=== PATIENT | male | born 1940 | race Caucasian/White ===

== ENCOUNTER 2016-12-07 14:31 | Inpatient (IN) ==
[2016-12-07] MEDS ORDERED: TYLENOL PO ONE (14:42)
[2016-12-07] MEDS ORDERED: NS 1,000 ML IV ONE ×2 (15:33→19:23)
--- NOTE | 2016-12-07 15:51 | Diag Imaging Result Doc PS360 ---
EXAM: CHEST-2 VIEWS HISTORY: fever low o2 TECHNIQUE: COMPARISON: 04/22/2016 FINDINGS: The lungs are well expanded. The heart is not enlarged. The vessels are not distended. There are no infiltrates. No pleural effusions.The right hemidiaphragm is elevated. This is similar to the prior exam. IMPRESSION: No pneumonia. Electronically signed by Reji Joel 12/07/2016 3:48 PM
[2016-12-07 15:58] LABS: BE 1.1 mmoll (-3.0-3.0); BLOOD TYPE ARTERIAL; DRAW SITE R RADIAL; METHB 1.8 % (0.0-1.5); PCO2(98.6) 30 mmHg (35-45); PO2(98.6) 67 mmHg (60-100); SAMPLE BLOOD; SAO2 97.5 % (95.0-100.0); THB 13.7 g/dL (11.5-17.4)
[2016-12-07 16:00] LABS: MODALITY CANNULA
[2016-12-07 16:01] LABS: ALLEN TEST YES
[2016-12-07 16:05] LABS: BASO% 0.3 % (0.0-0.8); EOS# 0.02 X1000 (0.0-0.7); EOS% 0.2 % (0.0-10.0); HEMOGLOBIN 14.2 g/dL (14.0-18.0); IMM GRAN# 0.05 X1000 (0.0-0.04); IMM GRAN% 0.5 % (0.0-0.5); LYMPH# 0.38 X1000 (1.2-3.4); LYMPH% 3.4 % (20.5-51.1); MANUAL DIFF NEEDED? NO; MCH 31.6 PG (27-31); MCHC 35.5 g/dL (33-37); MCV 89.1 FL (81-99); MONO# 1.08 X1000 (0.11-0.59); MONO% 9.7 % (1.7-9.3); MPV 10.1 FL (7.4-10.4); NEUT% 85.9 % (42.2-75.2); PLT 139 X1000 (130-400); RBC 4.49 XMIL (4.7-6.1)
[2016-12-07 16:08] LABS: INR 0.94 (0.86-1.15); PROTIME 13.3 Seconds (12.1-15.5); PTT PL 29.5 Seconds (22.6-43.9)
[2016-12-07 16:10] LABS: URINE CULTURE PL NEEDED? NO
[2016-12-07 16:14] LABS: BILIRUBIN URINE NEGATIVE (NEGATIVE); BLOOD URINE NEGATIVE (NEGATIVE); CLARITY CLEAR (CLEAR); COLOR YELLOW; GLUCOSE URINE NEGATIVE (NEGATIVE); LEUKOCYTES URINE NEGATIVE (NEGATIVE); NITRITE URINE NEGATIVE (NEGATIVE); PROTEIN URINE TRACE mg/dL (NEGATIVE); SP GRAVITY URINE 1.005; UROBILINOGEN URINE NORMAL
[2016-12-07 16:14] LABS: AGAP 13; ALBUMIN 4.4 g/dL (3.5-5.0); ALKALINE PHOSPHATASE 586 U/L (32-122); BUN 20 mg/dL (8-22); CALCIUM 9.3 mg/dL (8.8-10.2); CHLORIDE 98 mmol/L (98-107); COSMO 274; GOT 396 U/L (10-34); GPT 260 U/L (10-44); POTASSIUM 3.4 mmol/L (3.5-5.1); SODIUM 135 mmol/L (136-145); TCO2 24 mmol/L (25-35); TOTAL PROTEIN 7.7 g/dL (6.3-8.3)
[2016-12-07 16:15] LABS: CK PROFILE 282 U/L (24-204)
[2016-12-07 16:22] LABS: URINE WBC <10 /HPF (<10)
[2016-12-07 16:23] LABS: URINE CAST NONE SEEN /LPF; URINE CRYSTAL NONE SEEN /HPF; URINE EPITHELIAL CELLS <10 /HPF (<10); URINE RBC <10 /HPF (<10); URINE SOURCE CLEAN CATCH
[2016-12-07 16:30] LABS: CK INDEX 2.7 (0.0-2.5); CK-MB 7.75 ng/mL (0.0-5.0)
[2016-12-07] MEDS ORDERED: PERCOCET-10 PO ONE (17:09)
--- NOTE | 2016-12-07 17:11 | EKG Report ---
Test Performed on : 12/07/2016 5:07:07 PM Test Reason : AMS Blood Pressure : / mmHG Vent. Rate : 078 BPM Atrial Rate : 078 BPM P-R Int : 186 ms QRS Dur : 146 ms QT Int : 414 ms P-R-T Axes : 058 -66 020 degrees QTc Int : 471 ms Normal sinus rhythm. with sinus arrhythmia. Right bundle branch block Left anterior fascicular block Bifascicular block Abnormal ECG When compared with ECG of 23-APR-2016 00:38, premature ventricular complexes. are no longer present premature atrial complexes. are no longer present Unconfirmed Result
--- NOTE | 2016-12-07 17:53 | Diag Imaging Result Doc PS360 ---
EXAM: HEAD W/O CONTRAST HISTORY: ams TECHNIQUE: CT of the head without contrast with dose reduction (clarity.) COMMENT: There are calcifications in the vertebral and internal carotid arteries bilaterally. There is a lacune in the left caudate head and patchy ill-defined lucencies are present around the lateral ventricles particularly in the frontal horn regions. There is no evidence of mass or abnormal extra-axial fluid collection and no evidence of bleed is present. There is no evidence of hydrocephalus. Compared to 04/23/2016 there is been no significant change. IMPRESSION: Chronic ischemic changes. No evidence of acute disease. Electronically signed by Vish Whittaker 12/07/2016 5:51 PM
--- NOTE | 2016-12-07 17:54 | EKG Report ---
Test Performed on : 12/07/2016 5:50:04 PM Test Reason : REPEAT EKG Blood Pressure : / mmHG Vent. Rate : 077 BPM Atrial Rate : 077 BPM P-R Int : 184 ms QRS Dur : 144 ms QT Int : 422 ms P-R-T Axes : 057 -62 010 degrees QTc Int : 477 ms Sinus rhythm. with premature atrial complexes. with aberrant conduction. Left axis deviation Right bundle branch block Abnormal ECG When compared with ECG of 07-DEC-2016 17:07, (Unconfirmed) aberrant conduction. is now present Unconfirmed Result
--- NOTE | 2016-12-07 18:03 | Diag Imaging Result Doc PS360 ---
EXAM: CT ABD/PELVIS W/ IV CONT ONLY HISTORY: elevated transaminaes ams TECHNIQUE: CT of the abdomen and pelvis with intravenous contrast COMMENT: There are no previous studies available for comparison. There is atelectasis versus fibrosis versus pneumonia in the right lower lobe. A very small amount of pleural fluid is present in the right costophrenic sulcus. There are numerous granulomata in the spleen. There are dilated intrahepatic biliary ducts. The common bile duct measures over 11 mm. There are no apparent gallstones in the gallbladder is not distended. The pancreas is atrophic in appearance. There is some prominence of the distal pancreatic duct which measures almost 5 mm in diameter the possibility of a stone or other obstruction in the distal common bile duct cannot be excluded. There are scattered granulomata in the liver. The adrenal glands are not enlarged. The kidneys are without evidence of hydronephrosis or mass. There is stool throughout the colon. The small bowel is not distended. There is no evidence of significant adenopathy. The appendix is not identified however there is no evidence of appendicitis. Pelvis: There is severe diverticulosis in the distal descending and sigmoid colon. No evidence of active diverticulitis is present and there is no evidence of free fluid. There are surgical clips in the scrotum and vascular calcifications in the penis. There is a hydrocele on the left hemiscrotum. IMPRESSION: Biliary and pancreatic ductal dilatation which may be due to a stone or other obstructing lesion in the distal common bile duct. Electronically signed by Vish Whittaker 12/07/2016 6:01 PM
[2016-12-07] MEDS ORDERED: ZOSYN 3.375 GM/NS 3.375 GM/50 ML IVPB IV ONE (18:20)
[2016-12-07 18:36] LABS: AMYLASE 34 U/L (20-200); LIPASE 51 U/L (13-60)
[2016-12-07 18:48] LABS: CK INDEX 2.5 (0.0-2.5); CK-MB 5.26 ng/mL (0.0-5.0)
[2016-12-07] MEDS ORDERED: PERCOCET-10 PO PRN (22:06)
[2016-12-07] MEDS ORDERED: PERCOCET-10 PO SCH (22:15)
[2016-12-07] MEDS ORDERED: XANAX PO SCH (22:15)
[2016-12-07] MEDS ORDERED: ZOFRAN IV PRN (22:31)
[2016-12-07] MEDS: XANAX PO SCH (22:36)
[2016-12-07] MEDS ORDERED: THIAMINE 100 MG in NS 50 ML IV ONE (22:36)
[2016-12-07] MEDS ORDERED: KLOR-CON PO ONE (22:36)
[2016-12-07] MEDS: PERCOCET-10 PO SCH (22:36)
[2016-12-07] MEDS ORDERED: LOVENOX SUBQ SCH (22:45)
[2016-12-07] MEDS ORDERED: NS 250 ML ONE (23:48)
[2016-12-07] MEDS: ZOSYN 3.375 GM/NS 3.375 GM/50 ML IVPB IV SCH (23:49)
--- NOTE | 2016-12-08 01:52 | HISTORY AND PHYSICAL ---
CHIEF COMPLAINT: Chills. PRIMARY CARE PROVIDER: Dr. Kirit Bedolla in [place]. HISTORY OF PRESENT ILLNESS: Mr. Peres is a 76-year-old male, who presented to [facility] emergency room related to, as he put it in his own words, "hard chills." Has a history of hypertension, arthritis, and chronic back pain, that he takes chronic opioids and benzodiazepines for. He denies any chest pain, abdominal pain, nausea, vomiting , diarrhea, urinary symptoms, or changes to his bowel habits. In the ER, a laboratory panel was obtained, which showed an elevated AST and ALT, 396 and 260 respectively, with a total bilirubin of 2.30. A CT of the abdomen and pelvis with IV contrast, which showed biliary and pancreatic ductal dilation, with differentials to be included a stone or other obstructing lesion in the distal common bile duct, was also noted a severe diverticulosis in the descending colon and sigmoid colon. No evidence of acute diverticulitis. The patient will be admitted to [facility] with GI consultation for further evaluation and treatment. REVIEW OF SYSTEMS: Fourteen point review of systems conducted with the patient. Pertinent positives listed above in the HPI. All other systems reviewed and found to be negative. PAST MEDICAL HISTORY: 1. Osteoarthritis. 2. Hypertension. 3. Chronic pain syndrome. PREVIOUS SURGICAL HISTORY: 1. Left total knee arthroplasty. 2. Right total knee arthroplasty. 3. Colonoscopy. SOCIAL HISTORY: Former smoker. I believe he quit in the . Denies illicit drug use. He is a bolaños. Currently, lives alone. Does drink beer, 1-3 beers daily. FAMILY HISTORY: Mother and father both in their 80s from old age, per the patient. Denies any significant medical history in his family. ALLERGIES: Allergic to codeine and Benadryl. HOME MEDICATIONS: A list is not available at this time. The patient does take Percocet 10 and Xanax 1-2 mg. Order for nursing to reconcile home medications has been placed in the computer, and will be continued when possible. PHYSICAL EXAMINATION: VITAL SIGNS: Temperature 98.7 degrees, pulse 63, respirations 152/74, oxygen saturation 96% on room air. GENERAL: Pleasant 76-year-old male lying in the medical floor bed, in no acute distress. Answers all questions appropriately. HEENT: Head is atraumatic, normocephalic. Pupils equal, round, reactive to light. Extraocular eye movement intact. Sclerae noted to be icteric. Conjunctivae pink. Oral mucosa is moist. NECK: Supple. No JVD. No thyromegaly. Trachea is midline. CARDIAC: S1-S2 appreciated. No murmurs, gallops, rubs. LUNGS: Clear to auscultation. Symmetrical rise and fall with respirations. No rhonchi, wheezes, rales. ABDOMEN: Soft, nondistended, nontender. Bowel sounds present in all 4 quadrants. Normoactive. No pulsatile mass. No organomegaly. EXTREMITIES: No clubbing, cyanosis, or edema. 2+ pedal pulses bilaterally. SKIN: Mild jaundice noted. Otherwise, warm, dry, and intact. No acute lesions or rash. NEUROLOGICAL: Alert and oriented x3. Cranial nerves 2-12 are grossly intact. GENITOURINARY: Patient voids, otherwise deferred. DIAGNOSTIC DATA: CT of the abdomen and pelvis showed biliary and pancreatic ductal dilation, which may be due to a stone or other obstructing lesion in the distal common bile duct. EKG: Sinus rhythm, with PACs and right bundle branch block. CT of the head showed a chronic ischemic changes. LABORATORY DATA: WBC 11.10, hemoglobin 14.2, hematocrit 40, platelet count 139, 000. Coagulation studies within normal limits. Sodium 135, potassium 3.4, chloride 98, carbon dioxide 24, BUN 20, creatinine 1, glucose 121. Total bilirubin 2.30, AST 396, ALT 260, alkaline phosphate 589. Urine unremarkable. ASSESSMENT AND PLAN: 1. Obstructive jaundice. Will consult Dr. Casas for possible ERCP. Will give IV Zosyn. Hold patient NPO. Give normal saline, 125 mL an hour. 2. Hypokalemia. We will give 40 mEq of potassium. Recheck level in a.m. 3. Hypertension. I believe the patient may take Norvasc and lisinopril. Will start patient on these until his home medications can be evaluated. 4. Chronic low back pain and arthritis. Continue patient's Percocet. 5. Daily alcohol use. This may be contributing to the patient's elevated liver function tests. We will give 100 mg of thiamine. We will continue his Xanax, which he takes b.i.d. Nursing to monitor for neurologic changes or withdrawal symptoms. 6. Further recommendations per patient's clinical course. Dictated by ERIKA Diaz for Helio Earl MD Seen,examined,discussed case with COMMERCIAL COLLECTOR. cc: ERIKA Diaz MD [facility]
[2016-12-08] MEDS: ZOSYN 3.375 GM/NS 3.375 GM/50 ML IVPB IV SCH ×4 (06:27→23:06)
[2016-12-08] MEDS: PERCOCET-10 PO SCH ×3 (06:27→22:48)
[2016-12-08 07:02] LABS: BASO% 0.2 % (0.0-0.8); EOS# 0.01 X1000 (0.0-0.7); EOS% 0.1 % (0.0-10.0); HEMATOCRIT 33.1 % (42.0-52.0); HEMOGLOBIN 11.4 g/dL (14.0-18.0); LYMPH# 0.47 X1000 (1.2-3.4); LYMPH% 4.7 % (20.5-51.1); MANUAL DIFF NEEDED? YES; MCH 31.7 PG (27-31); MCHC 34.4 g/dL (33-37); MCV 91.9 FL (81-99); MONO# 0.74 X1000 (0.11-0.59); MONO% 7.3 % (1.7-9.3); MPV 10.4 FL (7.4-10.4); NEUT% 87.7 % (42.2-75.2); PLT 132 X1000 (130-400)
[2016-12-08 07:13] LABS: CALCIUM 8.5 mg/dL (8.8-10.2); MAGNESIUM 1.7 mg/dL (1.5-2.7); POTASSIUM 4.6 mmol/L (3.5-5.1)
--- NOTE | 2016-12-08 07:30 | EKG Report ---
Test Performed on : 12/08/2016 06:49:28 AM Test Reason : follow up Blood Pressure : / mmHG Vent. Rate : 057 BPM Atrial Rate : 057 BPM P-R Int : 188 ms QRS Dur : 126 ms QT Int : 456 ms P-R-T Axes : 046 -44 -16 degrees QTc Int : 443 ms Sinus bradycardia. Left axis deviation Right bundle branch block Abnormal ECG When compared with ECG of 07-DEC-2016 17:50, (Unconfirmed) aberrant conduction. is no longer present T wave inversion no longer evident in Anterior leads T wave amplitude has decreased in Lateral leads Confirmed by Jaiden Watson DO ([id number]) on 12/12/2016 11:20:54 AM
[2016-12-08 07:31] LABS: BANDS 6 % (0-1); LYMPHS 6 % (21-51); MONO 4 % (1-9)
[2016-12-08] MEDS ORDERED: NORVASC PO SCH (09:00)
[2016-12-08] MEDS ORDERED: PRINIVIL PO SCH (09:00)
--- NOTE | 2016-12-08 09:20 | Diag Imaging Result Doc PS360 ---
EXAM: US GB < RUQ (LIMITED) INDICATION: obstructive jaundice COMPARISON: None. FINDINGS: The gallbladder appears normal with no stones, wall thickening, or pericholecystic fluid. The common bile duct is dilated measuring up to 9 mm in diameter. There is also intrahepatic biliary dilatation. Sonographic Macias's sign was reported to be negative. Aside from the intrahepatic biliary dilatation, the liver is grossly unremarkable. Portal venous flow is hepatopedal. Pancreatic duct is somewhat dilated measuring up to 5 mm in diameter. The pancreas is partially obscured. The visualized portion is grossly unremarkable, otherwise. The aorta and IVC are grossly unremarkable. The right kidney is grossly unremarkable. IMPRESSION: Extrahepatic and intrahepatic biliary dilatation as well as pancreatic duct dilatation as described. Although not identified on this study, a distal obstructing lesion cannot be excluded. Consider correlation with ERCP. Electronically signed by Pete Muñoz 12/08/2016 9:18 AM
[2016-12-08] MEDS: PRINIVIL PO SCH (11:13)
[2016-12-08] MEDS: MIRALAX PO SCH (11:13)
[2016-12-08] MEDS: XANAX PO SCH ×2 (11:14→21:32)
[2016-12-08] MEDS: NORVASC PO SCH (11:14)
--- NOTE | 2016-12-08 11:54 | PROGRESS NOTE ---
DATE: 12/08/2016 SUBJECTIVE: This patient states that he is feeling better. He is complaining of mild abdominal discomfort. No nausea. No vomiting. They are going to start this patient on a liquid diet and he will be NPO after midnight. He will have an ERCP done tomorrow. OBJECTIVE: Vital Signs: Temperature 99.2 degrees, pulse 57, respiratory rate 21, blood pressure 109/58, oxygen saturation 94% on 2 L of nasal cannula. HEENT: Head normocephalic. No trauma. PERRLA. Neck: Supple. No JVD. No masses. Central trachea. Chest: Clear to auscultation. No wheezing. No rales. Abdomen: Soft, nontender, nondistended. Positive bowel sounds. Mild discomfort at the level of the right abdomen. Extremities: No edema. No clubbing. No cyanosis. Neurological: The patient is alert and oriented x3. No focal deficits. LABORATORY: WBC 10, hemoglobin 11.4, hematocrit 33.1 platelets 132,000. Sodium 138, potassium 4.6, chloride 102, bicarbonate 26, BUN 21, creatinine 1.2, glucose 118, calcium 8.5. ASSESSMENT AND PLAN: 1. Likely ascending cholangitis. This patient will have an ERCP done tomorrow. Gastroenterology department already evaluated this patient. He will have a liquid diet today and he will be NPO after midnight. 2. Hypokalemia, resolved. 3. Hypertension, stable. Blood pressure is 109/58. 4. Chronic low back pain and arthritis. Continue with his home medication. 5. Alcohol abuse. Probably this is contributing to this patient's LFT elevation. Continue with the same management for now. 6. Transaminitis. It could be multifactorial. Likely secondary to biliary obstruction and alcohol abuse. Will monitor. cc: Manny Wright MD
--- NOTE | 2016-12-08 11:54 | CONSULTATION ---
DATE OF CONSULTATION: 12/08/2016 REASON FOR REFERRAL: Fever, abnormal ultrasound/CT scan. HISTORY OF PRESENT ILLNESS: This is a 76-year-old white male, who presented to urgent care yesterday with high fever up to 104 and chills. He was recommended to go to [facility]. He was evaluated there and sent to [facility] for further evaluation. Daughter is at the bedside with the patient. She states he started running a high fever yesterday and had chills. She was concerned because in May he had an infection of his right knee replacement and it had to be redone. He was also on home antibiotics for over a month. He has denied abdominal pain. Denied nausea or vomiting. No reported constipation or diarrhea. He does report chronic back pain and states he had been evaluated for possible back surgery. On evaluation, he was found to have elevated liver function tests, and abnormal CT scan and ultrasound showing biliary and pancreatic duct dilation with possible stone or obstructing lesion in the distal common bile duct. Also, was noted to have severe diverticulosis, but no evidence of diverticulitis. PAST MEDICAL HISTORY: For arthritis, hypertension, chronic pain. PREVIOUS SURGICAL HISTORY: He has had left total knee replacement, right total knee replacement, He had to have the right total knee re-done due to an infection. He does report having a colonoscopy in the past. ALLERGIES: Allergies to codeine causing a rash; Benadryl unknown reaction. HOME MEDICATIONS: 1. Norvasc 10 mg daily. 2. Xanax 2 tablets twice a day. 3. Oxycodone/acetaminophen 10/325, one 3 times a day as needed. 4. Naproxen 500 mg twice a day. 5. Prinivil 20 mg daily. SOCIAL HISTORY: He is a former smoker, quit in the . He does report alcohol use. He would not tell me how often. He states he drinks "when he wants to". He lives alone. He does still work, as a bolaños. FAMILY HISTORY: No significant family history noted. REVIEW OF SYSTEMS: Per HPI. PHYSICAL EXAM: Vital Signs: Temperature 99.2 degrees, pulse 57, respirations 21, blood pressure 109/58. General: Generally patient is awake and alert in no acute distress. HEENT: Normocephalic, atraumatic. Pupils equal, round, reactive to light. Sclerae nonicteric. Respiratory: Lung sounds clear bilaterally. Abdomen: Soft, nondistended, positive bowel sounds. Extremities: No lower extremity edema noted. He does report having some swelling in the lower extremity at times. Skin: I do not notice any jaundice at this time. DIAGNOSTIC RESULTS/LABORATORY: Hematology: White count 10.07, hemoglobin 11.4 , hematocrit 33.1, MCV 91.9, platelet 132. Coagulation: Pro time 13.3, INR 0.94, PTT 29.5. Chemistry: Sodium 138, potassium 4.6, chloride 102, CO2 26, BUN 21, creatinine 1.2. Liver function tests on 12/07/2016: Total bilirubin 2.30, AST 396, ALT 260, alkaline phosphatase 586. Ammonia 29. Amylase 34, lipase 51. Ultrasound of the abdomen showed extrahepatic and intrahepatic biliary dilatation, as well as pancreatic duct dilation. CT scan of the abdomen and pelvis showed biliary and pancreatic ductal dilatation, possible stone or obstructing lesion in the distal common bile duct is possible. There is severe diverticulosis with no evidence of diverticulitis. ASSESSMENT AND PLAN: 1. Fever. 2. Biliary dilatation. 3. Elevated liver function tests. 4. Hypertension. 5. Chronic back pain. 6. Alcohol use. PLAN: Continue symptomatic treatment. Supportive care. Continue antibiotics. Start Full liquid diet. We will plan for an ERCP when the schedule permits. Further plans to be made according to findings. I have discussed the procedure along with benefits and risks with the patient and family. I have discussed this case with Dr. Ortiz. Further plans will be made as needed. Thank you for this consultation. Dictated by ERIKA Dixon for Ga Ortiz MD cc: ERIKA Sewell MD [facility]
[2016-12-09] MEDS: ZOSYN 3.375 GM/NS 3.375 GM/50 ML IVPB IV SCH ×3 (05:49→17:24)
[2016-12-09 06:17] LABS: MANUAL DIFF NEEDED? NO
[2016-12-09 06:26] LABS: BASO% 0.4 % (0.0-0.8); EOS# 0.43 X1000 (0.0-0.7); EOS% 5.5 % (0.0-10.0); HEMATOCRIT 35.2 % (42.0-52.0); IMM GRAN# 0.02 X1000 (0.0-0.04); IMM GRAN% 0.3 % (0.0-0.5); LYMPH# 0.61 X1000 (1.2-3.4); LYMPH% 7.9 % (20.5-51.1); MCH 31.6 PG (27-31); MCHC 34.1 g/dL (33-37); MCV 92.6 FL (81-99); MONO# 0.98 X1000 (0.11-0.59); MONO% 12.6 % (1.7-9.3); MPV 10.6 FL (7.4-10.4); NEUT% 73.3 % (42.2-75.2); PLT 140 X1000 (130-400)
[2016-12-09] MEDS: PERCOCET-10 PO SCH ×3 (06:31→19:42)
[2016-12-09 06:41] LABS: ALBUMIN 3.5 g/dL (3.5-5.0); POTASSIUM 4.8 mmol/L (3.5-5.1); TOTAL BILIRUBIN 0.61 mg/dL (0.20-1.00); TOTAL PROTEIN 6.5 g/dL (6.3-8.3)
[2016-12-09] MEDS: PRINIVIL PO SCH (09:03)
[2016-12-09] MEDS: NORVASC PO SCH (09:03)
[2016-12-09] MEDS: XANAX PO SCH ×4 (09:03→20:43)
[2016-12-09] MEDS: MIRALAX PO SCH (09:03)
[2016-12-09] MEDS: NS 1,000 ML IV SCH (09:06)
[2016-12-09] MEDS ORDERED: GLUCAGON ONE (12:36)
--- NOTE | 2016-12-09 13:00 | PROGRESS NOTE ---
DATE: 12/09/2016 SUBJECTIVE: This patient states that he is feeling better. He is complaining of mild abdominal discomfort. No nausea, no vomiting. The plan is to go ahead and get an ERCP done today. OBJECTIVE: Vital signs: Temperature 98.4, pulse 59, respiratory rate 19, blood pressure 131/62, oxygen saturation 95 on 2 L of nasal cannula. HEENT: Head normocephalic, no trauma, GERTRUDIS. Neck: No JVD, no masses. Central trachea. Chest: Clear to auscultation, no wheezing or rales. Abdomen: Soft, mild tenderness to palpation at the level of the right upper quadrant. Nondistended. Positive bowel sounds. Extremities: No edema, no clubbing, no cyanosis. Neurological: The patient is alert and oriented x3, no focal neurological deficits. LABORATORY: WBC 7.7, hemoglobin 12, hematocrit 35.2, platelets 140. Sodium 137, potassium 4.8, chloride 100, bicarbonate 26, BUN 23, creatinine 1.3, glucose 100, calcium 9. AST 83, ALT 143, alkaline phosphatase 329. Albumin 3.5. ASSESSMENT AND PLAN: 1. Likely ascending cholangitis. This patient will have an ERCP done today. Gastroenterology department already evaluated this patient. He is n.p.o. 2. Hypokalemia, resolved. 3. Hypertension, stable. 4. Transaminitis. Could be multifactorial secondary to biliary obstruction and alcohol abuse. This is getting much better. 5. Chronic low back pain and arthritis. Continue with home medication. 6. Alcohol abuse. Probably this is contributing to this patient's LFT elevation. Continue with the same management for now. This patient has been highly advised against alcohol abuse. I will continue with daily cessation education. cc: Manny Wright MD
[2016-12-09] MEDS ORDERED: INDOCIN ONE (13:11)
[2016-12-09] MEDS ORDERED: DIPRIVAN 1% 500 MG/50 ML BOTTLE ONE (13:16)
[2016-12-09] MEDS ORDERED: DIPRIVAN 1% ONE (14:47)
--- NOTE | 2016-12-09 15:21 | Diag Imaging Result Doc PS360 ---
EXAM: ERCP-BILIARY AND PANCREATIC HISTORY: elevated lfts, biliary dilation TECHNIQUE: COMPARISON: None. FINDINGS: Seven films submitted. The common bile duct isn't dilated. I believe there is a common bile duct stent which has been placed on the last images. Contrast does not empty from the common bile duct into the small bowel. IMPRESSION: Dilated common bile duct with a stent placed Electronically signed by Reji Joel 12/09/2016 3:19 PM
[2016-12-10] MEDS: ZOSYN 3.375 GM/NS 3.375 GM/50 ML IVPB IV SCH ×4 (01:00→17:10)
[2016-12-10] MEDS: PERCOCET-10 PO SCH ×4 (03:33→20:57)
[2016-12-10] MEDS: NS 1,000 ML IV SCH ×4 (06:17→20:56)
[2016-12-10 06:34] LABS: MANUAL DIFF NEEDED? NO
[2016-12-10 06:39] LABS: BASO% 0.1 % (0.0-0.8); EOS# 0.05 X1000 (0.0-0.7); EOS% 0.7 % (0.0-10.0); HEMOGLOBIN 12.4 g/dL (14.0-18.0); IMM GRAN# 0.02 X1000 (0.0-0.04); IMM GRAN% 0.3 % (0.0-0.5); LYMPH% 7.8 % (20.5-51.1); MCH 31.6 PG (27-31); MCHC 34.4 g/dL (33-37); MCV 91.6 FL (81-99); MONO% 7.8 % (1.7-9.3); MPV 10.7 FL (7.4-10.4); NEUT% 83.3 % (42.2-75.2); PLT 159 X1000 (130-400); RBC 3.93 XMIL (4.7-6.1)
[2016-12-10 07:08] LABS: AGAP 13; BUN 17 mg/dL (8-22); CALCIUM 8.5 mg/dL (8.8-10.2); CHLORIDE 99 mmol/L (98-107); COSMO 280; POTASSIUM 3.8 mmol/L (3.5-5.1); SODIUM 138 mmol/L (136-145); TCO2 26 mmol/L (25-35)
[2016-12-10 07:10] LABS: ALBUMIN 3.4 g/dL (3.5-5.0); DIRECT BILIRUBIN 1.2 mg/dL (0.00-0.20); TOTAL BILIRUBIN 1.51 mg/dL (0.20-1.00)
[2016-12-10] MEDS: XANAX PO SCH ×2 (08:42→20:57)
[2016-12-10] MEDS: MIRALAX PO SCH (08:42)
[2016-12-10] MEDS: NORVASC PO SCH (08:42)
[2016-12-10] MEDS: PRINIVIL PO SCH (08:42)
[2016-12-10] MEDS: PRILOSEC PO SCH ×2 (10:23→18:03)
--- NOTE | 2016-12-10 10:57 | OPERATIVE NOTE ---
PROCEDURE DATE: 12/09/2016 PROCEDURES: 1. Esophagogastroduodenoscopy. 2. Duodenal stricture dilation. 3. Endoscopic retrograde cholangiopancreatography. 4. Sphincterotomy. 5. Stent placement. MEDICATION USED: MAC as per Anesthesia. SCOPE: Olympus duodenal scope. PREOPERATIVE DIAGNOSES: 1. Obstructive jaundice. 2. Ascending cholangitis. POSTOPERATIVE DIAGNOSES: 1. Esophagitis. 2. Hiatal hernia. 3. Duodenal strictures. 4. Dilated biliary system and pancreatic duct. HISTORY: This 76-year-old gentleman admitted to the hospital with abdominal pain, fever, was found to have elevated LFT, and imaging studies showed evidence of dilated ducts , both intra and extrahepatic biliary system as well as pancreatic duct. ERCP was done for diagnostic as well as therapeutic purposes. DESCRIPTION OF PROCEDURE: Informed consent obtained from the patient. The procedure, risks, benefits, alternatives were explained in layman's terms. Risks of, but not limited to bleeding, perforation, aspiration, pneumonia, and pancreatitis was explained. They understood and agreed to proceed. Patient was brought to the endoscopy unit and was premedicated as per Anesthesia. After adequate sedation, while he was lying in left lateral position, the duodenal scope was introduced into the posterior pharynx and advanced manually into the esophagus. Through the esophagus, it was advanced to the stomach. The stomach was insufflated. Pylorus identified. Scope was then passed through the pylorus into the duodenal bulb, and further advancement was not possible because of severe stricture in the duodenum between the duodenal bulb and the second portion of duodenum. At this point, I withdrew the duodenal scope and I changed it to a gastroscope. The scope was then introduced into the posterior pharynx and advanced under direct vision into the esophagus, advanced through the esophagus. There was evidence of erosions noted in the distal esophagus suggestive of erosive esophagitis. There was a 2 cm hiatal hernia noted. The scope was then passed through the esophagus into the stomach. The stomach was insufflated and examined both in straight and retroflexed view, which revealed no pathology. Scope was then passed through the normal pylorus into the duodenal bulb and, again, I saw the stricture at the distal end of the duodenal bulb. No distinct ulcer was seen. Using a TTS balloon, I dilated the stricture up to 12 mm and, then I was able to advance the scope into the second portion of the duodenum where I could see the major papilla tangentially.There was another stricture noted just beyond the papilla; so, in fact, there were 2 strictures; one was before the papilla and the second one was beyond the papilla. That was also about 5-8 mm in diameter. I went and stretched that one using a TTS balloon up to 11 mm. I was able to advance the scope through into the distal end of the 2nd portion of the duodenum. I did not see any pathology there. The scope was then withdrawn, then I reintroduced the duodenal scope back into the duodenum but, unfortunately, I was not able to pass the duodenal scope into the second portion at all. At this point, I went ahead and used the straight viewing scope again and, fortunately, I was able to cannulate the pancreatic duct first, although the visualization was only transiently, but luckily, the cannula could be passed into the pancreatic duct. Contrast injected pancreatogram revealed dilated pancreatic duct. I did not see any pathology there. Then I used the similar technique, and I was able to pass the cannula into the common bile duct. After deep cannulation, contrast injected. Cholangiogram obtained which revealed dilated common bile duct, intrahepatic biliary ducts. The ducts were about 15 mm or so in size. However, I did not see any distinct filling defect or tumor. I did not see any stricture either. But, interestingly, the contrast was not flowing into the duodenum. At this point, I went ahead and advanced the wire into the hepatic biliary system and scope was then withdrawn leaving the wire in place. Then I switched the scope back to the ERCP scope, and I was able to cannulate the common bile duct although from a distance, and I was able to advance the cannula deep into the common bile duct using the guidewire as my guide. After that, I switched the wire from the one previously put in to the one that I went through the ERCP scope, and I was able to deploy a plastic stent into the distal common bile duct which was about 5 cm long 7- Croatian. Good drainage was noted and contrast was covering not be easily. The scope was then withdrawn. The patient tolerated the procedure. There were no complications noted. Patient was then transferred to the recovery area in a stable condition. IMPRESSION: 1. Erosive esophagitis. 2. Hiatal hernia. 3. Stricture duodenum x2, dilated. 4. Dilated intra and extrahepatic biliary ducts. Etiology most likely was whatever the cause for inflammation and stricture of the duodenum, although it appeared to be benign and peptic. 5. Dilated pancreatic duct.. RECOMMENDATION: I would continue him on proton pump inhibitor to heal the area of this peptic stricture and go back and re-examine the entire biliary system at a later date. In the meantime, I would continue antibiotic and recheck his labs and follow him in the hospital. Once he is discharged, I will see him in the office. I have explained the findings and patient's daughter was present at bedside. She understood all the pertinent questions and answered. cc: Ga Ortiz MD MTDD
--- NOTE | 2016-12-10 16:14 | PROGRESS NOTE ---
DATE: 12/10/2016 SUBJECTIVE: This patient states that he is feeling better. Some abdominal discomfort but, compared with previous days, is it is better. No nausea, no vomiting. He is tolerating p.o. Family members at the bedside. All their questions were answered. OBJECTIVE: Vital Signs: Temperature 98.1 degrees, pulse 61, respiratory rate 15, blood pressure 139/64, oxygen saturation 95% on 2 L of nasal cannula. HEENT: Head normocephalic. No trauma. PERRLA. Neck: Supple. No JVD. No masses. Central trachea. Chest: Clear to auscultation. No wheezing. No rales. Abdomen: Soft. Mild generalized tenderness to palpation. Nondistended, positive bowel sounds. Extremities: No edema. No clubbing. No cyanosis. Neurological: The patient is alert and oriented x3. No focal neurological deficits. LABORATORY: WBC 7.6, hemoglobin 12.4, hematocrit 36, platelets 159,000. Sodium 138, potassium 3.8, chloride 99, bicarbonate 26, BUN 17, creatinine 1, glucose 144, calcium 8.5, albumin 3.4. ASSESSMENT AND PLAN: 1. Ascending cholangitis, status post ERCP. This procedure was done yesterday and they found a dilated biliary system and pancreatic duct, and a stent has been placed. 2. Duodenal strictures. Continue with PPIs. 3. Esophagitis and hiatal hernia. Continue with the same management for now. 4. Hypokalemia, resolved. 5. Transaminitis. The liver function test increased a little bit. This is likely secondary to the ERCP done yesterday. We will continue to monitor. 6. Chronic low back pain and arthritis. Continue with home medication. 7. Alcohol abuse. This patient has been highly advised against alcohol abuse. I will continue with daily cessation education. 8. Hypertension, stable. cc: Manny Wright MD
[2016-12-11] MEDS: ZOSYN 3.375 GM/NS 3.375 GM/50 ML IVPB IV SCH ×2 (00:16→05:46)
[2016-12-11] MEDS: PERCOCET-10 PO SCH ×2 (02:48→06:47)
[2016-12-11] MEDS: NS 1,000 ML IV SCH (02:49)
[2016-12-11 06:26] LABS: MANUAL DIFF NEEDED? NO
[2016-12-11 06:32] LABS: BASO% 0.4 % (0.0-0.8); EOS# 0.11 X1000 (0.0-0.7); EOS% 1.5 % (0.0-10.0); HEMATOCRIT 39.1 % (42.0-52.0); HEMOGLOBIN 13.6 g/dL (14.0-18.0); IMM GRAN# 0.04 X1000 (0.0-0.04); IMM GRAN% 0.5 % (0.0-0.5); LYMPH# 0.75 X1000 (1.2-3.4); LYMPH% 9.9 % (20.5-51.1); MCH 31.3 PG (27-31); MCHC 34.8 g/dL (33-37); MCV 89.9 FL (81-99); MONO# 0.83 X1000 (0.11-0.59); MPV 10.5 FL (7.4-10.4); NEUT% 76.7 % (42.2-75.2); PLT 194 X1000 (130-400); RBC 4.35 XMIL (4.7-6.1)
[2016-12-11] MEDS: PRILOSEC PO SCH (06:48)
[2016-12-11 06:52] LABS: AGAP 14; ALBUMIN 3.9 g/dL (3.5-5.0); ALKALINE PHOSPHATASE 564 U/L (32-122); BUN 12 mg/dL (8-22); CALCIUM 9.7 mg/dL (8.8-10.2); CHLORIDE 101 mmol/L (98-107); COSMO 287; GOT 76 U/L (10-34); GPT 138 U/L (10-44); POTASSIUM 3.5 mmol/L (3.5-5.1); SODIUM 144 mmol/L (136-145); TCO2 29 mmol/L (25-35); TOTAL BILIRUBIN 1.41 mg/dL (0.20-1.00); TOTAL PROTEIN 7.4 g/dL (6.3-8.3)
[2016-12-11] MEDS ORDERED: APRESOLINE IV PRN (07:49)
[2016-12-11 08:39] VITALS: BP 156/67
[2016-12-11] MEDS ORDERED: APRESOLINE PO SCH (09:00)
[2016-12-11] MEDS: NORVASC PO SCH (09:31)
[2016-12-11] MEDS: MIRALAX PO SCH (09:31)
[2016-12-11] MEDS: XANAX PO SCH (09:31)
[2016-12-11] MEDS: PRINIVIL PO SCH (09:31)
--- NOTE | 2016-12-11 12:30 | PROGRESS NOTE ---
DATE: 12/11/2016 SUBJECTIVE: Patient states he is feeling better. He denies complaints at present time. He is wanting to go home. OBJECTIVE: Vital Signs: Temperature 98.7 degrees, pulse 72, respirations 16, blood pressure 156/67. LABORATORY RESULTS: Hematology: White count 7.56, hemoglobin 13.6, hematocrit 39.1, MCV 89.9, platelet 194,000. Chemistry: Sodium 144, potassium 3.5, chloride 101, CO2 29, BUN 12, creatinine 1.0, glucose 106, total bilirubin 1.41. AST 76, ALT 138, alkaline phosphatase 564. ERCP findings on 12/10/2016 showed erosive esophagitis, hiatal hernia, stricture in the duodenum x2 that were dilated. Dilated intra and extrahepatic biliary ducts. Dilated pancreatic duct. There was a stent placed. PLAN: Continue PPI. Will see him in the office in 2 weeks. We will plan to schedule a repeat ERCP in approximately 6 weeks to go back and reexamine the biliary system and remove the stent. Recommended patient have repeat liver function test in 2 weeks and see us in the office in 2 weeks. Patient voices understanding in this plan. I have discussed this case with Dr. Ortiz and also discussed the case with Dr. Mckeon. Dictated by ERIKA Dixon for Ga Ortiz MD cc: ERIKA Sewell MD
--- NOTE | 2016-12-11 17:12 | DISCHARGE SUMMARY ---
ADMISSION DATE: 12/07/2016 DISCHARGE DATE: 12/11/2016 CONSULTATIONS: Ga Ortiz MD with Gastroenterology. PERTINENT PROCEDURES: 1. Abdominal pelvis CT showed biliary and pancreatic ductal dilatation which may be due to a stone or other obstructing lesion in the common distal bile duct. 2. Head CT showed chronic ischemic changes. No evidence of acute disease. 3. Abdominal ultrasound showed extrahepatic and intrahepatic biliary dilatation as well as pancreatic duct dilatation although not identified on this study. A distal obstructing lesion cannot be excluded. Consider correlation with ERCP. 4. EGD with ERCP and stent placement performed by Dr. Ortiz. Ascending colon showed status post ERCP with stent placement performed by Dr. Ortiz. DISCHARGE DIAGNOSES: 1. Duodenal strictures. Continue PPI. 2. Esophagitis and hiatal hernia. 3. Hypokalemia resolved. 4. Transaminitis improving. 5. Chronic low back pain and arthritis. Continue with home medications. 6. Alcohol abuse. The patient has been advised about alcohol abstinence with daily cessation education. 7. Hypertension stable. HOSPITAL COURSE: Mr. Peres is a 76-year-old, male who presented to [facility] ED with chills. He carries a past medical history of hypertension, arthritis, chronic back pain that he takes chronic opiates for and benzodiazepines. In the ED laboratory data showed an elevated AST and ALT of 396 and 260, total bilirubin of 2.30. CT of the abdomen and pelvis showed biliary and pancreatic ductal dilatation. The patient was transferred to [facility] for GI consultation. He was given IV antiemetics, held NPO, started on IV fluids. His electrolytes were replenished. On monitoring his liver function he was given IV fluids and PRN treatment daily given his alcohol use as well as monitored closely for any neurologic or withdrawal symptoms. Patient underwent an EGD as well as ERCP with stent placement with Dr. Ortiz. They did find esophagitis, hiatal hernia, duodenal strictures, dilatated biliary system and pancreatic duct. Recommend to continue on PPI and follow up with Dr. Ortiz in 2 weeks. He has had no nausea or vomiting. No fever or chills. He is tolerating p.o. He is stable for discharge today. VITAL SIGNS ON DISCHARGE: Temperature is 98.7 degrees, heart rate 72, respirations 16, blood pressure 156/67, O2 is 92% on room air. DISCHARGE DIET: GI soft. DISCHARGE MEDICATIONS: 1. Xanax 1 mg tablet, 2 tabs p.o. as directed. 2. Norvasc 10 mg p.o. daily. 3. Cipro 250 mg p.o. b.i.d. 4. Prinivil 20 mg p.o. daily. 5. Prilosec 40 mg p.o. daily. 6. Percocet 10, 1 each p.o. q.8 hours. 7. MiraLAX 17 g p.o. daily. DISPOSITION: Mr. Peres is being discharged home with family. FOLLOWUP: 1. He will follow up with Dr. Ortiz in 2 weeks. 2. He can follow up with his primary care physician, Kirit Bedolla. 3. He can return to the ED for any worsening of symptoms. DISCHARGE INSTRUCTIONS: 1. Continue his PPI as well as his antibiotics. 2. He has been advised about alcohol abstinence. DISCHARGE TIME: 30 minutes. Dictated by ERIKA Don for Manny Wright MD cc: MD Kirit Alejo
[2016-12-11] MEDS ORDERED: CIPRO PO SCH (21:00)
[2016-12-12] MEDS ORDERED: PRILOSEC PO SCH (07:00)
--- NOTE | 2016-12-23 11:19 | PROVIDER DOCUMENTATION ---
This chart was entered by Caridad Colon Scribe, acting as scribe for Harsh Barroso MD. HPI-Fever <Alonzo Galicia - Last Filed: 12/07/16 20:42> - General Source: family (daughter) - History of Present Illness-Fever Fever Severity/Quality: reports: greater than 102 F Onset/Duration: reports: this morning (1000) Timing: reports: still present Severity: reports: moderate Context: reports: confusion Recent Illness?: reports: none Fever Therapy PSYCHIATRIC AIDE: Initiated none Cognitive Baseline: alert, oriented x3 Modifying Factors: improves with: nothing Associated Symptoms: reports: fever/chills (fever), other (confusion). denies: anxiety, arm pain, back/neck pain, chest pain, constipation, cough, diaphoresis , diarrhea, dizziness, EENT symptoms, fatigue, genitourinary problems, headaches , heartburn, joint pain, loss of appetite, malaise, muscle aches, sinus congestion/drainage, nausea, rash, seizure, shortness of breath, sensory/motor loss, pain with inspiration, swelling/mass in abdomen, syncope, vomiting, weakness, trouble walking Similar Symptoms Previously?: Yes (present since this am at 1000) Recently seen or treated by another doctor?: No <Scarlet Barroso - Last Filed: 12/23/16 11:19> - General Chief Complaint: Fever Stated Complaint: 103.9 FEVER/LOW O2 STAT Time Seen by Provider: 12/07/16 14:58 Allergies/Adverse Reactions: Patient Allergies Allergy/AdvReac Type Severity Reaction Status Date / Time codeine AdvReac RASH Verified 02/25/15 11:27 diphenhydramine HCl * AdvReac Unknown Verified 02/25/15 11:27 [From Benadryl] Home Medications: Home Medication List Medication Instructions Recorded Confirmed Last Taken Type Amlodipine [Norvasc] 10 mg PO DAILY 10/09/13 12/08/16 12/07/16 History 10mg daily LISINOpril [Prinivil] 20 mg PO DAILY 10/09/13 12/08/16 12/07/16 History Alprazolam [Xanax] 2 tab PO DIRECTED MDD BID 11/05/15 12/08/16 12/07/16 History 2mg Ciprofloxacin [Cipro] 250 mg PO BID #10 tablet 12/11/16 Unknown Rx Omeprazole [Prilosec] 40 mg PO DAILY #30 capsule 12/11/16 Unknown Rx Oxycodone/APAP 10 mg/325 mg 1 each PO Q8H #10 tablet 12/11/16 Unknown Rx [Percocet-10] Polyethylene Glycol 3350 [Miralax] 17 gm PO DAILY #15 powder, packet 12/11/16 Unknown Rx - History of Present Illness-Fever Nature of Presenting Problem: Pt is 76 y/o M presents to the ED with fever. Pt's daughter states visiting Pt this am at 1000 and Pt was in bed shaking. Pt's daughter states he is normally up and active. Pt's daughter states Pt is confused and talking out of his head. Pt's daughter states prior infection due to knee replacement. Pt's daughter states Pt was put on IV antibiotic for 3 times a day for 8 wks. Pt's daughter states taking Pt to Urgent Care prior to arrival. (Caridad Colon) Pt is 76 y/o M presents to the ED with fever. Pt's daughter states visiting Pt this am at 1000 and Pt was in bed shaking. Pt's daughter states he is normally up and active. Pt's daughter states Pt is confused and talking out of his head. Pt's daughter states prior infection due to knee replacement. Pt's daughter states Pt was put on IV antibiotic for 3 times a day for 8 wks. Pt's daughter states taking Pt to Urgent Care prior to arrival. (Scarlet Barroso) Review of Systems - Adult - REVIEW OF SYSTEMS - ADULT Constitutional: reports: fever. denies: chills, night sweats Eyes: denies: blurred vision, double vision, redness Ears, Nose, Mouth & Throat: denies: ear pain, nose pain, throat pain Cardiovascular: denies: chest pain, heart murmur, irregular heart rate Respiratory: denies: cough, shortness of breath, wheezing Gastrointestinal: denies: abdominal pain, diarrhea, nausea, vomiting Genitourinary: denies: dysuria, flank pain, hematuria Musculoskeletal: denies: bone pain, joint pain, neck pain Integumentary: denies: hives, itching, rash Neurological: reports: other (confusion). denies: dizziness/vertigo, headache/ migraines, numbness, slurred speech, syncope Psychiatric: denies: anxiety, depression, suicidal thoughts Endocrine: reports: no symptoms reported Hematologic/Lymphatic: reports: no symptoms reported Allergic/Immunologic: reports: no symptoms reported All Other Systems: Reviewed and Negative <Scarlet BarrosoRadha - Last Filed: 12/23/16 11:19> Past History - Adult - PAST MEDICAL HISTORY-ADULT Review of Records: reports: Nursing Assessment Review, Medications Reviewed, Social history reviewed & non-contributory. Major Childhood Illnesses: reports: denies history Cardiovascular: reports: HTN Respiratory: reports: denies history Gastrointestinal: reports: denies history Obstetrical/Gynecological: reports: denies history Genitourinary: reports: denies history Musculoskeletal: reports: denies history Neurological: reports: denies history Endocrine/Immune: reports: denies history Other Conditions: reports: denies history - PRIOR SURGERIES/PROCEDURES Surgical/Procedure History: reports: orthopedic (extremity), joint replacement - IMMUNIZATION STATUS Childhood Immunizations: See Nurse Assessment Flu Vaccine: See Nurse Assessment - FAMILY HISTORY Family History: reviewed, not pertinent - SOCIAL HISTORY Smoking: quit greater than 1 year, cigarettes Substance Use: alcohol Alcohol Use Frequency: every day Number of drinks per typical drinking period:: 3-4 drinks Living Situation: alone <Scarlet BarrosoRadha - Last Filed: 12/23/16 11:19> Physical Exam-General - PHYSICAL EXAM-ADULT Initial Vital Signs Reviewed: Yes - CONSTITUTIONAL General Appearance: alert. negative: lethargic, slow to respond - EYES Eyes: PERRL/EOMI. negative: pale conjunctivae, sunken eyes - HEAD, EARS, NOSE, MOUTH & THROAT HENMT: normocephalic/atraumatic, moist mucous membranes. negative: angioedema, hearing deficit - NECK Neck: normal inspection. negative: lymphadenopathy, tender lateral - RESPIRATORY Respiratory: chest non-tender, lungs clear, decreased breath sounds (right worse than left). negative: crackles, wheezing - CARDIOVASCULAR Cardiovascular: regular rate, rhythm. negative: tachycardia, systolic murmur - GASTROINTESTINAL (ABDOMEN) Abdominal Exam: normal bowel sounds, non tender, soft. negative: distended, rebound, hernia - LYMPHATIC Lymphatic: no adenopathy. negative: enlargement, streaking - MUSCULOSKELETAL Back Exam: normal inspection, no vertebral tenderness. negative: ecchymosis, swelling Extremity: normal range of motion, non-tender, swelling (bilateral lower leg). negative: deformity, erythema - SKIN Integumentary: normal color, normal turgor, warm/dry, swelling (bilateral lower leg). negative: ecchymosis, erythema - NEUROLOGIC Neurologic: other (confusion). negative: aphasia, facial droop - PSYCHIATRIC Psych/Mental Status: other (confusion). negative: paranoid, tearful <Scarlet Barroso - Last Filed: 12/23/16 11:19> Progress - PLAN OF CARE/RESULTS Result Diagrams: 12/07/16 15:14 12/07/16 15:14 - EKG 2 Time of EKG reading by physician:: 17:50 EKG Read and Signed by:: Alonzo Galicia EKG Interpretation (*Must complete 3 of following elements*): Abnormal Rate: 77 Rhythm: sinus rhythm with PACs with aberrant conduction [place]: left QRS: RBB <Alonzo Galicia - Last Filed: 12/07/16 20:42> - PLAN OF CARE/RESULTS Result Diagrams: 12/11/16 05:53 12/11/16 05:53 - EKG 1 Time of EKG reading by physician:: 17:07 EKG Read and Signed by:: Scarlet Barroso EKG Interpretation (*Must complete 3 of following elements*): Abnormal Rate: 78 Rhythm: normal sinus rhythm with sinus arrhythmia Comments: RBBB; left anterior fascicular block; bifascicular block - XRAY 1 XRAY Study: Chest Impression: Normal XRAY Interpretation: no pneumonia - CHANGE OF SHIFT REPORT (ED Provider) Report Given and Care Transferred to:: Dr. Galicia Time of Transfer: 17:52 Items Pending: Labs, CT/MRI Results <Scarlet Barroso - Last Filed: 12/23/16 11:19> - PLAN OF CARE/RESULTS Progress/Plan/Lab Results: Orders Category Date Time Status Admit - [facility] - [facility] Routine AdmDCTranf 12/07/16 19:23 Ordered Activity - Bed Rest with BRP ORDERED Care 12/07/16 19:23 Inactive Cardiac Monitoring DIRECTED Care 12/07/16 15:32 Completed IV Insertion ORDERED Care 12/07/16 15:32 Completed Notify MD of + Sepsis Screen NOW Care 12/07/16 15:32 Completed Vital Signs Order Q 4-HR ASSESS Care 12/07/16 19:23 Inactive CHEST-2 VIEWS [RAD] Stat Exams 12/07/16 15:[address] ABD/PELVIS W/ IV CONT ONLY [CT] Stat Exams 12/07/16 16:[address] HEAD W/O CONTRAST [CT] Stat Exams 12/07/16 16:51 Completed ABG [RESP] Routine Lab 12/07/16 15:30 Completed AMMONIA [CHEM] Stat Lab 12/07/16 17:10 Completed AMYLASE [CHEM] Stat Lab 12/07/16 17:15 Completed BLOOD CULTURE [BLDCUL] Stat Lab 12/07/16 16:05 Completed CBC WITH DIFF [HEME] Stat Lab 12/07/16 15:14 Completed CK PROFILE [SP CHEM] Stat Lab 12/07/16 15:14 Completed CK PROFILE [SP CHEM] Stat Lab 12/07/16 17:10 Completed COMPREHENSIVE METABOLIC PANEL [CHEM] Stat Lab 12/07/16 15:14 Completed LACTATE, PLASMA [CHEM] Stat Lab 12/07/16 16:05 Completed LIPASE [CHEM] Stat Lab 12/07/16 17:15 Completed MAGNESIUM [CHEM] Stat Lab 12/07/16 15:14 Completed [address]IME WITH INR PL [COAG] Stat Lab 12/07/16 15:[address] [COAG] Stat Lab 12/07/16 15:14 Completed TROPONIN T Stat Lab 12/07/16 15:14 Completed TROPONIN T Stat Lab 12/07/16 17:[address] W/POSS RFLX CULT [URINALYSIS] Stat Lab 12/07/16 16:00 Completed 0.9% Sodium Chloride Inj [Ns] 1,000 ml Med 12/07/16 19:23 Discontinued IV 125 mls/hr 0.9% Sodium Chloride Inj [Ns] 1,000 ml Med 12/07/16 15:33 Discontinued IV 999 mls/hr Acetaminophen [Tylenol] Med 12/07/16 14:42 Discontinued 1,000 mg PO NOW ONE Oxycodone/APAP 10 mg/325 mg [Percocet-10] Med 12/07/16 17:09 Discontinued 1 each PO NOW ONE Piperacil/Tazobact 3.375 gm/Ns [Zosyn 3.375 gm/Ns] Med 12/07/16 18:20 Discontinued 3.375 gm in 50 ml IV NOW Oxygen Device Stat Oth 12/07/16 15:32 Completed EKG [EKG] Stat Ther 12/07/16 16:46 Draft EKG [EKG] Stat Ther 12/07/16 17:39 Draft Transfer/Admit Order [TRANSFER] Routine Transfer 12/07/16 19:23 Completed Departure - Departure Date of Disposition Decision: 12/07/16 Time of Disposition Decision: 20:43 Certified Medical Emergency: Emergent - Critical Care Note This patient required my direct & personal management of CC.: No <Alonzo Galicia - Last Filed: 12/07/16 20:42> - Departure Date of Disposition Decision: 12/07/16 Time of Disposition Decision: 20:42 Certified Medical Emergency: Emergent - Critical Care Note This patient required my direct & personal management of CC.: No <Scarlet Barroso - Last Filed: 12/23/16 11:19> - Departure DIAGNOSIS: Fever, Obstruction of biliary tree Disposition: ADMITTED INPATIENT 09 Condition: Good Attestation - Physician/ HCELSEA Attestation The physician spent face to face time with patient:: Yes Advanced Practice Provider documentation review:: Supervising physician onsite and consulted in the evaluation and care of this patient. The physician did have a face to face encounter with the patient. <Scarlet Barroso - Last Filed: 12/23/16 11:19> This chart was documented by the indicated scribe, (Caridad Colon Scribe) and accurately reflects the services I performed and decisions made by me, Scarlet Barroso MD, as attested by the provider's signature.
== END 2016-12-11 13:27 | disposition home or self-care (01) ==
LOC: P.ED 14:31 → SUATTDRO 19:51 → 3N 19:51
PROVIDERS: ATTEND Internal Medicine